=== PATIENT | female | born 1985 | race Caucasian/White ===

== ENCOUNTER 2017-02-07 18:46 | Emergency (ER) | payer MEDICAID ==
[2017-02-07] MEDS ORDERED: LIDOCAINE 1%-EPI 1:100000 20 ML MDV ONE (19:11)
[2017-02-07] MEDS ORDERED: SODIUM BICARBONATE ABBOJECT 50 MEQ/50 ML SYRINGE ONE (19:11)
[2017-02-07] MEDS ORDERED: DOXYCYCLINE 100 MG TABLET PO STA (19:24)
[2017-02-07] MEDS ORDERED: DOXYCYCLINE 100 MG TABLET PO ONE (19:31)
== END 2017-02-07 19:38 | disposition home or self-care (01) ==
DX: L02.214 Cutaneous abscess of groin (principal); F17.200 Nicotine dependence, unspecified, uncomplicated
CPT/HCPCS: 10060; 87070; 87205; 99283; A9270